=== PATIENT | male | born 1960 | race Two or more races ===

== ENCOUNTER 2017-06-25 13:00 | Emergency (ER) | payer OTHER ==
[~2017-06-25] VITALS: Ht 172.7 cm; Wt 81.6 kg
[2017-06-25 13:13] VITALS: BP 128/78
[2017-06-25] MEDS ORDERED: LIDOCAINE 1% INJ 50 ML MDV IJ ONE (13:18)
[2017-06-25] MEDS ORDERED: LIDOCAINE HCL/PF 1% 30 ML SDV ONE (13:37)
[2017-06-25] MEDS ORDERED: LIDOCAINE /MPF 1% VIAL 5 ML VIAL IJ ONE (14:00)
[2017-06-25] MEDS ORDERED: TDAP [DIPH/PERTUSSIS/TET] 0.5 ML VIAL IM ONE ×2 (14:00→14:24)
--- NOTE | 2017-06-25 14:00 | NUR ---
Wound irrigated with normal saline solution, using high pressure piston syringe
--- NOTE | 2017-06-25 14:04 | NUR ---
Nicol CHARLES at bedside for suture placement
== END 2017-06-25 14:43 | disposition home or self-care (01) ==
LOC: ER 13:08
DX: S01.81XA Laceration without foreign body of other part of head, initial encounter (principal); F17.200 Nicotine dependence, unspecified, uncomplicated; W22.8XXA Striking against or struck by other objects, initial encounter; Y93.89 Activity, other specified; Y92.89 Other specified places as the place of occurrence of the external cause; Y99.8 Other external cause status
CPT/HCPCS: 12013; 90471; 90715; 99283; A4606; A6402; A6403; J3490 ×2; Z7610